=== PATIENT | female | born 1980 | race Caucasian/White ===

== ENCOUNTER 2016-07-17 17:32 | Emergency (ER) | payer MEDICAID ==
[~2016-07-17] VITALS: Ht 165.1 cm; Wt 84.5 kg
[~2016-07-17 17:32] MED LIST: CYCL-319 PO; HYDR-3498 PO; IBUP-1542 PO; IBUP800T25 PO; MTF1000T PO; NAPR-260 PO; OSLT75C PO; TRAM50TA2 PO
[2016-07-17 17:37] VITALS: Ht 165.1 cm; Wt 84.5 kg
[2016-07-17] MEDS ORDERED: LIDOCAINE/MYLANTA 40 ML BTL PO STA (18:57)
[2016-07-17] MEDS ORDERED: BELLADONNA/PHENOBARBITAL TAB PO STA (18:57)
[2016-07-17] MEDS ORDERED: KETOROLAC 30 MG INJ IM STA (18:57)
[2016-07-17] MEDS ORDERED: MAG355OR14 PO (19:03)
[2016-07-17] MEDS ORDERED: OMEP40CA6 PO (19:03)
[2016-07-17] MEDS ORDERED: FAMO40TA52 PO (19:03)
[2016-07-17 19:25] VITALS: BP 129/70; PULSE 78; RESP 16; TEMP 99
--- NOTE | 2016-07-17 23:05 | ERD ---
ER Documentation Chief Complaint Date/Time DATE: 07/17/16 TIME: 23:04 Chief Complaint LT ABD PAIN X1 MONTH. 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 Pain is been constant nonradiating and nonexertional. Patient denies precipitating or alleviating factors and she has been using ibuprofen intermittently without relief. Patient denies melena or blood per rectum, no dysuria, no weight loss, no chest pain or shortness of breath. ROS All systems reviewed and are negative except as per history of present illness. Medications Home Meds Active Scripts Omeprazole* (Omeprazole*) 40 Mg Capsule.dr, 40 MG PO DAILY, #30 CAP Prov:THANG MCCALL MD 07/17/16 Famotidine* (Famotidine*) 40 Mg Tablet, 40 MG PO HS, #30 TAB Prov:THANG MCCALL MD 07/17/16 Mag Hydrox/Al Hydrox/Simeth (Maalox Advanced Suspension) 355 Ml Oral.susp, 2 TSP PO TID for PAIN, #24 OZ Prov:THANG MCCALL MD 07/17/16 Cyclobenzaprine Hcl* (Cyclobenzaprine Hcl*) 10 Mg Tablet, 10 MG PO BID, #10 TAB Prov:LAKISHA MENDES PA-C 01/22/16 Naproxen* (Naprosyn*) 500 Mg Tablet, 500 MG PO BID Y for PAIN AND/OR INFLAMMATION, #30 TAB Prov:LAKISHA MENDES PA-C 01/22/16 Tramadol HCl (Tramadol HCl) 50 Mg Tablet, 50 MG PO Q4 Y for PAIN, #20 TAB Prov:LAKISHA MENDES PA-C 01/22/16 Tramadol HCl (Tramadol HCl) 50 Mg Tablet, 50 MG PO Q4 Y for PAIN, #20 TAB Prov:COURTNEY MESA MD 12/15/15 Ibuprofen* (Motrin*) 600 Mg Tab, 600 MG PO Q6, #20 TAB Prov:COURTNEY MESA MD 12/15/15 Ibuprofen* (Motrin*) 800 Mg Tab, 800 MG PO Q6, #30 TAB Prov:MARY RIZVI NP 11/14/15 Hydrocodone Bit-Acetaminophen* ([place]*) 5-325 Mg Tab, 1 TAB PO Q6 Y for PAIN, # 7 TAB Prov:ALEX MANCERA PA-C 09/09/15 Ibuprofen* (Motrin*) 600 Mg Tab, 600 MG PO Q6, #30 TAB Prov:ALEX MANCERA PA-C 16 Metformin* (Glucophage*) 1,000 Mg Tablet, 1000 MG PO BID, #20 TAB Prov:SILVIA LOPEZ MD 06/24/15 Ibuprofen* (Motrin*) 600 Mg Tab, 600 MG PO Q6H Y for PAIN AND OR ELEVATED TEMP, #30 TAB Prov:SILVIA LOPEZ MD 06/24/15 Oseltamivir Phosphate* (Tamiflu*) 75 Mg Capsule, 75 MG PO BID for 5 Days, CAP Prov:SILVIA LOPEZ MD 06/24/15 Allergies Allergies: Coded Allergies: No Known Drug Allergy (Verified Allergy, Mild, 06/24/15) PMhx/Soc Diabetes mellitus, gastritis Medical and Surgical Hx: pt denies Surgical Hx History of Surgery: No Anesthesia Reaction: No Hx Neurological Disorder: No Hx Respiratory Disorders: No Hx Cardiac Disorders: No Hx Psychiatric Problems: No Hx Miscellaneous Medical Probl: Yes (DM2) Hx Alcohol Use: No Hx Substance Use: No Hx Tobacco Use: No Smoking Status: Never smoker FmHx Family History: No diabetes Physical Exam Vitals Vital Signs Date Time Temp Pulse Resp B/P Pulse Ox O2 Delivery O2 Flow Rate FiO2 07/17/16 19:25 99.0 78 16 129/70 97 Room Air 07/17/16 17:37 99.1 68 16 122/73 95 Physical Exam GENERAL: Well-developed, well-nourished, well-hydrated, in no apparent distress , looks nontoxic in appearance HEENT: Moist mucous membranes, pink conjunctiva, no cervical spine tenderness or step-off deformities, no goiter, no jaundice or icterus, extraocular movements intact without pain. No submandibular induration, and no pharyngeal erythema NEURO: Alert and oriented 3, cranial nerves II through XII intact bilaterally, pupils equal round reactive to light, no focal deficits or facial asymmetry, sensation intact distally Strength 5/5 in upper and lower extremities bilaterally CARDIAC: Regular rate and rhythm, no murmurs rubs or gallops LUNGS: Clear bilaterally no wheezing crackles or stridor ABDOMEN: Soft nontender, no guarding, no rigidity, no rebound, no psoas sign no obturator sign. Normoactive bowel sounds SKIN: Warm and dry to touch, no abrasions, contusions, or hematomas, no lacerations, no ecchymosis, no target lesions, and without ulcers EXTREMITIES: No clubbing cyanosis or edema, calves are bilaterally symmetrical, no Homans sign, no popliteal cord sign. Distal pulses equal and bilateral PSYCH: Normal affect without agitation or irritability Results 24 hrs Current Medications Medications (Trade) Dose Ordered Sig/Kesha Route PRN Reason Start Time Stop Time Status Last Admin Dose Admin Ketorolac Tromethamine (Toradol) 30 mg ONCE STAT IM 07/17/16 18:57 07/17/16 18:59 DC 07/17/16 19:06 Miscellaneous Medication (Gi Cocktail (2)) 40 ml ONCE STAT PO 07/17/16 18:57 07/17/16 18:59 DC 07/17/16 19:06 Belladonna/ Phenobarbital () 2 tab ONCE STAT PO 07/17/16 18:57 07/17/16 18:59 DC 07/17/16 19:06 Procedures/MDM I administered Toradol 30 mg intramuscular injection for pain control and a GI cocktail 50 cc p.o. with good response. Differential diagnoses considered, included but not limited to acute coronary syndrome, pulmonary embolism, aortic dissection, abdominal aortic aneurysm, sepsis, stroke, meningitis, encephalitis, pneumonia, appendicitis, cholecystitis , bowel obstruction, pyelonephritis, nephrolithiasis, cystitis, as well as metabolic, hematologic, and electrolyte abnormalities. As well as abscess, cellulitis, fractures, and dislocations. Patient feels much better at this time, and vital signs are normal, symptoms have improved. I did give strict instructions to return to the ED if symptoms continue or worsen, patient will otherwise follow-up with primary care physician. Patient understood instructions and agreed to plan. Departure Diagnosis: Primary Impression: Abdominal pain Abdominal location: epigastric Qualified Code: R10.13 - Epigastric pain Condition: Good Patient Instructions: Abdominal Pain, Gastritis Vs. Ulcer THANG MCCALL MD Jul 17, 2016 23:05
== END 2016-07-17 19:31 | disposition home or self-care (01) ==
LOC: FTE 17:32
DX: R10.13 Epigastric pain (principal); E11.9 Type 2 diabetes mellitus without complications; Z79.84 Long term (current) use of oral hypoglycemic drugs
CPT/HCPCS: 96372; J1885; Z7502; Z7610

== ENCOUNTER 2016-10-13 20:44 | Emergency (ER) | payer MEDICAID ==
[~2016-10-13] VITALS: Ht 167.6 cm; Wt 86.0 kg
[~2016-10-13 20:44] MED LIST changes: +FAMO40TA52 PO; +MAG355OR14 PO; +OMEP40CA6 PO
[2016-10-13 21:18] VITALS: Ht 167.6 cm; Wt 86.0 kg
[2016-10-13] MEDS ORDERED: HYDROCODONE/APAP (5/325) TAB PO ONE (22:30)
[2016-10-13 22:49] LABS: URINE BLOOD (Dip) POC Negative (NEGATIVE)
[2016-10-13 23:19] LABS: ADD SCAN DIFF NO
[2016-10-13 23:31] LABS: ABNORMAL IP MESSAGE 1; HEMATOCRIT 37.5 % (37.0-47.0); MEAN CORPUSCULAR HEMOGLOBIN 28.6 pg (29.0-33.0); MEAN CORPUSCULAR HGB CONC 34.7 g/dl (32.0-37.0); MEAN CORPUSCULAR VOLUME 82.6 fl (82.0-101.0); MEAN PLATELET VOLUME 13.4 fl (7.4-10.4); PLATELET COUNT 242 10^3/UL (140-415); RED BLOOD COUNT 4.54 10^6/ul (4.20-5.40); RED CELL DISTRIBUTION WIDTH 11.8 % (11.5-14.5); WHITE BLOOD COUNT 10.3 10^3/ul (4.8-10.8)
[2016-10-13 23:42] LABS: ALBUMIN 4.1 g/dl (3.3-4.9); ALBUMIN/GLOBULIN RATIO 1.28; BILIRUBIN,INDIRECT 0.4 mg/dl (0-1.1); BILIRUBIN,TOTAL 0.4 mg/dl (0.2-1.3); CALCIUM 9.8 mg/dl (8.4-10.2); CREATININE 0.86 mg/dl (0.44-1.00); POTASSIUM 3.8 mmol/L (3.5-5.1); TOTAL PROTEIN 7.3 g/dl (6.1-8.1)
[2016-10-14 00:33] LABS: EOSINOPHILS # 0.3 10^3/ul (0.0-0.5); LYMPHOCYTES # 3.7 10^3/ul (0.8-2.9); MONOCYTE # 0.7 10^3/ul (0.3-0.9); NEUTROPHIL # 5.6 10^3/ul (1.6-7.5); PLATELET ESTIMATE PLT APPEAR ADEQUATE
--- NOTE | 2016-10-14 00:52 | ERD ---
ER Documentation Chief Complaint Date/Time DATE: 10/14/16 TIME: 00:49 Chief Complaint bilateral feet pain x 2 days. denies injury HPI 36-year-old diabetic female presents to emergency department today for bilateral foot pain and burning with tingling. Patient reports that she is a diabetic on insulin, reports that her blood sugars are controlled. Patient denies any blurred vision, dysuria, polyphagia, polydipsia. Patient denies chest pain shortness of breath, calf pain, dizziness or headache. ROS All systems reviewed and are negative except as per history of present illness. Medications Home Meds Active Scripts Gabapentin* (Gabapentin*) 300 Mg Capsule, 300 MG PO BID, #60 CAP Prov:PANFILOIGNACIO 10/14/16 Omeprazole* (Omeprazole*) 40 Mg Capsule.dr, 40 MG PO DAILY, #30 CAP Prov:THANG MCCALL MD 07/17/16 Famotidine* (Famotidine*) 40 Mg Tablet, 40 MG PO HS, #30 TAB Prov:THANG MCCALL MD 07/17/16 Mag Hydrox/Al Hydrox/Simeth (Maalox Advanced Suspension) 355 Ml Oral.susp, 2 TSP PO TID for PAIN, #24 OZ Prov:THANG MCCALL MD 07/17/16 Cyclobenzaprine Hcl* (Cyclobenzaprine Hcl*) 10 Mg Tablet, 10 MG PO BID, #10 TAB Prov:LAKISHA MENDES PA-C 01/22/16 Naproxen* (Naprosyn*) 500 Mg Tablet, 500 MG PO BID Y for PAIN AND/OR INFLAMMATION, #30 TAB Prov:LAKISHA MENDES PA-C 01/22/16 Tramadol HCl (Tramadol HCl) 50 Mg Tablet, 50 MG PO Q4 Y for PAIN, #20 TAB Prov:LAKISHA MENDES PA-C 01/22/16 Tramadol HCl (Tramadol HCl) 50 Mg Tablet, 50 MG PO Q4 Y for PAIN, #20 TAB Prov:COURTNEY MESA MD 12/15/15 Ibuprofen* (Motrin*) 600 Mg Tab, 600 MG PO Q6, #20 TAB Prov:COURTNEY MESA MD 12/15/15 Ibuprofen* (Motrin*) 800 Mg Tab, 800 MG PO Q6, #30 TAB Prov:MARY RIZVI NIKOLAI 11/14/15 Hydrocodone Bit-Acetaminophen* ([place]*) 5-325 Mg Tab, 1 TAB PO Q6 Y for PAIN, # 7 TAB Prov:ALEX MANCERAC 09/09/15 Ibuprofen* (Motrin*) 600 Mg Tab, 600 MG PO Q6, #30 TAB Prov:ALEX MANCERA PA-C 16 Metformin* (Glucophage*) 1,000 Mg Tablet, 1000 MG PO BID, #20 TAB Prov:SILVIA LOPEZ MD 06/24/15 Ibuprofen* (Motrin*) 600 Mg Tab, 600 MG PO Q6H Y for PAIN AND OR ELEVATED TEMP, #30 TAB Prov:SILVIA LOPEZ MD 06/24/15 Oseltamivir Phosphate* (Tamiflu*) 75 Mg Capsule, 75 MG PO BID for 5 Days, CAP Prov:SILVIA LOPEZ MD 06/24/15 Allergies Allergies: Coded Allergies: No Known Drug Allergy (Verified Allergy, Mild, 10/13/16) PMhx/Soc History of Surgery: Yes (TUBAL LIGATION ) Anesthesia Reaction: No Hx Neurological Disorder: No Hx Respiratory Disorders: No Hx Cardiac Disorders: Yes (HIGH CHOLESTEROL) Hx Psychiatric Problems: No Hx Miscellaneous Medical Probl: Yes (DM2) Hx Alcohol Use: No Hx Substance Use: No Hx Tobacco Use: No Smoking Status: Never smoker Physical Exam Vitals Vital Signs Date Time Temp Pulse Resp B/P Pulse Ox O2 Delivery O2 Flow Rate FiO2 10/14/16 01:11 98.4 71 12 118/73 99 Room Air 10/13/16 21:18 98.4 78 20 111/66 98 Vitals stable, triage notes reviewed Physical Exam Const: Well-appearing well-nourished, well-hydrated, no acute Head: Atraumatic Eyes: Normal Conjunctiva, PERRLA, EOMI ENT: Normal External Ears, Nose and Mouth., Mucous membranes Neck: Resp: Chest rise and fall symmetrically, respirations even and unlabored, no respiratory distress Cardio: Abd: Skin: Back: Ext: Lower Extremity - bilateral: Skin: No laceration. No obvious injury or deformity Compartments: Soft, negative Homans sign Motor: Full active range of motion hip/knee/ankle/foot Sensation: Intact to light touch all surfaces. Neur: Awake and alert Psych: Normal Mood and Affect Result Diagram: 10/13/16224410/13/162244 Results 24 hrs Laboratory Tests Test 10/13/16 22:45 10/13/16 22:55 White Blood Count 10.310^3/ul Red Blood Count 4.5410^6/ul Hemoglobin 13.0g/dl Hematocrit 37.5% Mean Corpuscular Volume 82.6fl Mean Corpuscular Hemoglobin 28.6pg Mean Corpuscular Hemoglobin Concent 34.7g/dl Red Cell Distribution Width 11.8% Platelet Count 15014^3/UL Mean Platelet Volume 13.4fl Neutrophils % 54.0% Lymphocytes % 36.0% Monocytes % 7.0% Eosinophils % 3.0% Neutrophils # 5.610^3/ul Lymphocytes # 3.710^3/ul Monocytes # 0.710^3/ul Eosinophils # 0.310^3/ul Platelet Estimate PLT APPEAR ADEQUATE Erythrocyte Sedimentation Rate 5mm/Hr Sodium Level 138mmol/L Potassium Level 3.8mmol/L Chloride Level 93mmol/L Carbon Dioxide Level 30mmol/L Anion Gap 19 Blood Urea Nitrogen 12mg/dl Creatinine 0.86mg/dl Glucose Level 312mg/dl Calcium Level 9.8mg/dl Total Bilirubin 0.4mg/dl Direct Bilirubin 0.00mg/dl Indirect Bilirubin 0.4mg/dl Aspartate Amino Transf (AST/SGOT) 21IU/L Alanine Aminotransferase (ALT/SGPT) 39IU/L Alkaline Phosphatase 90IU/L Total Protein 7.3g/dl Albumin 4.1g/dl Globulin 3.20g/dl Albumin/Globulin Ratio 1.28 Bedside Urine pH (LAB) 5.0 Bedside Urine Protein (LAB) Negative Bedside Urine Glucose (UA) 0.50% Bedside Urine Ketones (LAB) Negative Bedside Urine Blood Negative Bedside Urine Nitrite (LAB) Negative Bedside Urine Leukocyte Esterase (L Trace Current Medications Medications (Trade) Dose Ordered Sig/Kesha Route PRN Reason Start Time Stop Time Status Last Admin Dose Admin Acetaminophen/ Hydrocodone Bitart ([place] (5/325)) 1 tab ONCE ONCE PO 10/13/16 22:30 10/13/16 22:31 DC 10/13/16 22:43 Interpretation text CBC shows no evidence of hemorrhage or infection Chemistry shows no evidence of significant electrolyte abnormalities or renal insufficiency, glucose elevated 312 Liver function tests shows no evidence of acute biliary or hepatic dysfunction Urinalysis negative for evidence of microscopic hematuria, nitrates or leukocytosis, positive for glucose Procedures/MDM This 36-year-old female presents to emergency department for neuropathy, history of diabetes, blood glucose elevated 312. No evidence of DKA anion gap 19. Patient is alert, oriented, reports that her blood sugars are controlled. Patient also reports gradual onset of foot tingling and burning but worsened over the last few days. Little suspicion for compartment syndrome or DVT, negative Homans sign. Patient has not seen her primary care physician for this complaint. Laboratory testing done in emergency department, without emergent findings. Patient treated with 1 [place] and emergency department is sent home on Neurontin 300 mg 1 tab p.o. twice daily a 30 day supply was provided, patient was instructed to follow-up with primary x ray service engineer or primary physician for reevaluation of suspected poor control of diabetes, patient instructed to monitor her carbohydrate intake, increase fluids rest and exercise, monitor weight gain. Return to emergency department for worsening of symptoms. Chest pain shortness of breath, dizziness, calf pain I feel the patient is stable for discharge at this time with outpatient management by primary physician. I have discussed results, examination findings, the treatment plan with the patient and family present prior to discharge. Indications for emergent reevaluation, side effects of medication were also discussed. All questions were answered. Patient verbalizes understanding and agrees with plan of care. Departure Diagnosis: Primary Impression: Neuropathy Additional Impression: Hx of diabetes mellitus Patient Instructions: Diabetes and Peripheral Arterial Disease (PAD) [facility] Additional Instructions: Thank you for for coming to [facility] for your care today. Please ask your nurse or provider if you have questions about your care today and do not leave until all your questions have been answered. Please use any medications given as directed and follow-up with your doctor (or the doctor you were referred to) in the next 2-3 days. If you do not have a primary care doctor you may follow up at the [facility] (listed below). You may also use motrin and tylenol as needed for fever and/or pain unless instructed otherwise by your provider or nurse. Indications for more urgent follow-up have been discussed, but you may return to the Emergency Department at ANY time for any worrisome or worsening symptoms. If you have abdominal pain, please know that no test or exam you received is perfect and you should follow up within 8 hours for continued pain. If you had any imaging studies today, such as an X-Ray or CT Scan, these studies will be reviewed later by a radiologist. You will be called if there are important findings that were not identified today, so make sure the contact information you provided at registration is correct. If you received any narcotic pain control medicine today, such as Vicodin, Morphine or Dilaudid, your coordination and judgment may be affected for a number of hours. Please do not drive or operate heavy machinery, and you may want someone to assist you at home. If you were given a prescription for narcotic medication, be aware that it is very addictive- use sparingly and only if necessary. IGNACIO WHITTAKER Oct 14, 2016 00:52
[2016-10-14] MEDS ORDERED: GABA300C16 PO (00:55)
[2016-10-14 01:11] VITALS: BP 118/73; PULSE 71; RESP 12; TEMP 98.4
== END 2016-10-14 01:12 | disposition home or self-care (01) ==
LOC: FTE 20:44
DX: E11.21 Type 2 diabetes mellitus with diabetic nephropathy (principal); M79.672 Pain in left foot; R10.2 Pelvic and perineal pain; Z79.84 Long term (current) use of oral hypoglycemic drugs
CPT/HCPCS: 80053; 81003; 85025; 85651; Z7610; 36415; 99283

== ENCOUNTER 2016-11-07 06:19 | Emergency (ER) | payer MEDICAID ==
[~2016-11-07] VITALS: Ht 167.6 cm; Wt 87.0 kg
[~2016-11-07 06:19] MED LIST changes: +GABA300C16 PO
[2016-11-07 06:26] VITALS: Ht 167.6 cm; Wt 87.0 kg
[2016-11-07] MEDS ORDERED: IBUP-1542 PO (06:42)
[2016-11-07] MEDS ORDERED: PSEU30TA38 PO (06:42)
--- NOTE | 2016-11-07 07:08 | ERD ---
ER Documentation Chief Complaint Date/Time DATE: 11/07/16 TIME: 07:07 Chief Complaint [address] WITH ST AND CONGESTION SINCE YESTERDAY, DENIES FEVER. ROS All systems reviewed and are negative except as per history of present illness. Medications Home Meds Active Scripts Pseudoephedrine Hcl* (Pseudoephedrine Hcl*) 30 Mg Tablet, 30 MG PO Q6 Y for CONGESTION, #28 TAB Prov:CHRISTINE ERNANDEZ PA-C 11/07/16 Ibuprofen* (Ibuprofen*) 600 Mg Tablet, 600 MG PO Q6, #30 TAB Prov:CHRISTINE ERNANDEZ PA-C 11/07/16 Gabapentin* (Gabapentin*) 300 Mg Capsule, 300 MG PO BID, #60 CAP Prov:PANFILO,MELODY 10/14/16 Omeprazole* (Omeprazole*) 40 Mg Capsule.dr, 40 MG PO DAILY, #30 CAP Prov:THANG MCCALL MD 07/17/16 Famotidine* (Famotidine*) 40 Mg Tablet, 40 MG PO HS, #30 TAB Prov:THANG MCCALL MD 07/17/16 Mag Hydrox/Al Hydrox/Simeth (Maalox Advanced Suspension) 355 Ml Oral.susp, 2 TSP PO TID for PAIN, #24 OZ Prov:THANG MCCALL MD 07/17/16 Cyclobenzaprine Hcl* (Cyclobenzaprine Hcl*) 10 Mg Tablet, 10 MG PO BID, #10 TAB Prov:LAKISHA MENDES PA-C 01/22/16 Naproxen* (Naprosyn*) 500 Mg Tablet, 500 MG PO BID Y for PAIN AND/OR INFLAMMATION, #30 TAB Prov:LAKISHA MENDES PA-C 01/22/16 Tramadol HCl (Tramadol HCl) 50 Mg Tablet, 50 MG PO Q4 Y for PAIN, #20 TAB Prov:LAKISHA MENDES PA-C 01/22/16 Tramadol HCl (Tramadol HCl) 50 Mg Tablet, 50 MG PO Q4 Y for PAIN, #20 TAB Prov:COURTNEY MESA MD 12/15/15 Ibuprofen* (Motrin*) 600 Mg Tab, 600 MG PO Q6, #20 TAB Prov:COURTNEY MESA MD 12/15/15 Ibuprofen* (Motrin*) 800 Mg Tab, 800 MG PO Q6, #30 TAB Prov:MARY RIZVI NETWORK SECURITY CONSULTANT 11/14/15 Hydrocodone Bit-Acetaminophen* ([place]*) 5-325 Mg Tab, 1 TAB PO Q6 Y for PAIN, # 7 TAB Prov:ALEX MANCERA-C 09/09/15 Ibuprofen* (Motrin*) 600 Mg Tab, 600 MG PO Q6, #30 TAB Prov:ALEX MANCERA-C 16 Metformin* (Glucophage*) 1,000 Mg Tablet, 1000 MG PO BID, #20 TAB Prov:SILVIA LOPEZ MD 06/24/15 Ibuprofen* (Motrin*) 600 Mg Tab, 600 MG PO Q6H Y for PAIN AND OR ELEVATED TEMP, #30 TAB Prov:SILVIA LOPEZ MD 06/24/15 Oseltamivir Phosphate* (Tamiflu*) 75 Mg Capsule, 75 MG PO BID for 5 Days, CAP Prov:SILVIA LOPEZ MD 06/24/15 Allergies Allergies: Coded Allergies: No Known Drug Allergy (Verified Allergy, Mild, 10/13/16) PMhx/Soc History of Surgery: Yes (TUBAL LIGATION ) Anesthesia Reaction: No Hx Neurological Disorder: No Hx Respiratory Disorders: No Hx Cardiac Disorders: Yes (HIGH CHOLESTEROL) Hx Psychiatric Problems: No Hx Miscellaneous Medical Probl: Yes (DM2) Hx Alcohol Use: No Hx Substance Use: No Hx Tobacco Use: No Physical Exam Vitals Vital Signs Date Time Temp Pulse Resp B/P Pulse Ox O2 Delivery O2 Flow Rate FiO2 11/07/16 06:26 97.8 72 14 105/72 99 Physical Exam Head: Atraumatic HEENT: Atraumatic. Conjunctivae are pink. Pupils equal, round and reactive to light. There is no scleral icterus. TM clear bilaterally. Uvula midline. No tonsilar exudate. Neck: Full range of motion..~ No meningismus. No cervical lymphadenopathy Resp: Clear to auscultation bilaterally Cardio: Regular rate and rhythm, no murmurs Skin: No petechiae or rashes Procedures/MDM 36-year-old female coming in complaining of sore throat. I have low suspicion for strep throat. I have low suspicion for peritonsillar or retropharyngeal abscess. Patient's exam is not concerning patient is nontoxic-appearing with normal vitals. I feel the patient's sore throat is likely associated with viral etiology and I did not feel that antibiotics are indicated at today's visit. Patient will be given medication for supportive care. All questions answered at time of discharge. Patient is to comply with plan. Departure Diagnosis: Primary Impression: Sore throat Condition: Stable Patient Instructions: Self-Care for Sore Throats Additional Instructions: FOLLOW UP WITH YOUR PRIMARY CARE PHYSICIAN TOMORROW.Return to this facility if you are not improving as expected. CHRISTINE ERNANDEZ PA-C Nov 07, 2016 07:08
== END 2016-11-07 07:10 | disposition home or self-care (01) ==
LOC: FTE 06:19
DX: J02.9 Acute pharyngitis, unspecified (principal); E11.9 Type 2 diabetes mellitus without complications; Z79.84 Long term (current) use of oral hypoglycemic drugs
CPT/HCPCS: 99283

== ENCOUNTER 2017-03-16 20:16 | Emergency (ER) | END 2017-03-16 23:42 | disposition home or self-care (01) ==

== ENCOUNTER 2017-04-07 19:55 | Emergency (ER) | END 2017-04-07 20:57 | disposition home or self-care (01) ==

== ENCOUNTER 2017-05-15 20:20 | Emergency (ER) | END 2017-05-16 00:15 | disposition home or self-care (01) ==

== ENCOUNTER 2017-06-10 16:03 | Emergency (ER) | END 2017-06-10 19:29 | disposition left against medical advice (07) ==

== ENCOUNTER 2017-11-12 19:27 | Emergency (ER) | END 2017-11-12 20:54 | disposition left against medical advice (07) ==

== ENCOUNTER 2017-11-13 09:45 | Emergency (ER) | END 2017-11-13 11:26 | disposition home or self-care (01) ==